=== PATIENT | female | born 2000 | race Caucasian/White ===

== ENCOUNTER 2019-09-09 11:45 | Outpatient (REF) | payer MEDICAID, SELFPAY ==
--- NOTE | 2019-09-09 10:15 | PAPFT_PTH ---
PATIENT: Janeen Mcneill LOC: [facility] U#:[id number] AGE/SX: 19/F ROOM: RE09/09/[address]: Lady Gaines : 2000 BED: DIS: 09/09/2019 SPEC #: [id number] RECD: 09/10/19 12:53 STATUS: STEFANI REQ #: [id number] JOSE ENRIQUE: 09/09/19 10:[address]: Lady Gaines DEPT: [facility] Cytology RECD BY: Kailyn Vu ENTERED: 09/10/19 12:53 SP TYPE: PAPFT OTHR DR: Alyssa Conner Tissues: 1 - CX/ENDOCX FOR PAP SMEARS Procedures: PAP THIN PREP/[facility] Screening Comments: [id number] (CHLAMYDIA/GC)
[2019-09-11 13:49] LABS: Chlamydia Result Negative (Negative); GC Result Negative (Negative)
== END 2019-09-09 12:05 ==
LOC: NCHCN 11:45
PROVIDERS: PCP Nurse Practitioner Family; Visit Provider Family Medicine
DX: Z11.3 Encounter for screening for infections with a predominantly sexual mode of transmission (principal); Z12.4 Encounter for screening for malignant neoplasm of cervix; R87.612 Low grade squamous intraepithelial lesion on cytologic smear of cervix (LGSIL)
CPT/HCPCS: 87491; 87591; 88142

== ENCOUNTER 2022-02-18 12:36 | Emergency (ER) | payer MEDICAID, SELFPAY ==
[2022-02-18] VITALS (20 sets, daily range): BP systolic 94–107; BP diastolic 45–69; PULSE 58–116; RESP 11–24; TEMP 36.6; O2SAT 97–100
--- NOTE | 2022-02-18 13:00 | RT.EKG_ITS ---
APPROVED REPORT Exam: Resting ECG Reason for Exam: nausea vomiting Patient Location: E HR:75 bpm ECG Measurements Heart Rate 75 AXIS PA 124 P 58 QRSd 94 QRS 75 QT 387 T 39 QTc 434 Conclusion Sinus rhythm...normal P axis, V-rate 60- 99 Atrial premature complex...SV complex w/ short R-R interval sinus rhythm, normal axis, normal intervals, non ischemic
--- NOTE | 2022-02-18 13:00 | DI.CT_ITS ---
Exam(s) CT ABDOMEN PELVIS W EXAM: CT ABDOMEN PELVIS W CLINICAL HISTORY: nausea vomiting. TECHNIQUE: Imaging Protocol: Axial computed tomography images with coronal and sagittal reformatted images were created and reviewed CONTRAST MATERIAL: Intravenous: Omnipaque 350 Contrast volume 70 ml Oral: / no COMPARISON: No exams were available for comparison FINDINGS: ABDOMEN: Lung Bases: Normal where visualized. Liver: Normal density. No measurable mass. Gallbladder and biliary tract: No radiodense calculus or dilation. Pancreas: Normal density, no abnormal calcifications or inflammatory process. Spleen: Normal. Kidneys: Normal size, contour and axis. No radiodense stones or obstructive uropathy. No masses seen. Adrenal glands: No masses seen. Abdominal Aorta: Abdominal portion non-dilated. PELVIS: Bladder: No gross wall thickening. No calculi.No focal mass. Bowel: No obstruction or bowel wall thickening. Appendix normal.Colon mainly free of stool. Peritoneal cavity: No ascites, collection or mesenteric inflammatory response. Bones: Within normal limits for age. Reproductive organs: Uterus within normal limits. Bilateral enlarged ovaries with multiple follicles could indicate polycystic ovarian syndrome. Lymph nodes: Unremarkable. Impression: Enlarged bilateral ovaries which could indicate polycystic ovarian syndrome. No acute abnormality. RADIATION DOSE DELIVERED: 632.71mGy.cm Total DLP DATA REPOSITORY: All CT scans at this facility are submitted to the National Radiology Data Registry (NRDR) Dose Index Registry (DIR) with the [employer] (ACR). RADIATION OPTIMIZATION: All CT scans at this facility use at least one of these dose optimization te chniques: automated exposure control; mA and/or kV adjustment per patient size (includes targeted exa ms where dose is matched to clinical indication); or iterative reconstruction.
--- NOTE | 2022-02-18 13:10 | W.ED.GENAD ---
Discharge Plan Disposition Patient Disposition: Home Condition: Improving Discharge Details Chief Complaint: Nausea/Vomit/Diar Clinical Impression: Nausea & vomiting Primary Care Provider: Lady Gaines ED Provider: Ed Ozuna Home Meds and New Rx's Prescriptions: No Action No Known Home Meds Discharge Instructions Instructions: Acute Nausea and Vomiting (ED) Additional Instructions: Please help with your primary care physician. Please return to the emergency department for any worsening symptoms. Medical Decision Making 21-year-old female presents with several days of nausea and vomiting, normal bowel movement today or yesterday, no history of abdominal surgeries, patient is a daily marijuana smoker, was evaluated [facility] yesterday and discharged home with antiemetics. Persistent nausea and vomiting. Dry oral mucosa and tachycardia on arrival nontender nondistended abdomen. No urinary symptoms. Consider persistent enteritis versus viral syndrome versus low suspicion for appendicitis or cholecystitis, must evaluate for UTI pancreatitis and . Will obtain labs and imaging. Consider possible cannabinoid hyperemesis syndrome or cyclic vomiting syndrome. Will obtain EKG to assess QTC if normal will administer low-dose droperidol, patient will be receiving IV fluids close reassessment disposition pending results and reexamination 15: 41 likely mild dehydration in the setting of enteritis. Patient resting comfortably hemodynamically stable no vomiting in department. Responded well to droperidol. Partner is here to take her home. HPI General Date/Time Provider Initiated Documentation: 02/18/22 12:42. HPI Narrative: 21-year-old female presents with persistent nausea and vomiting over the past 4 days, normal bowel movement yesterday. No history of abdominal surgeries. Patient is a daily marijuana smoker. Was evaluated at [facility] and discharged with antiemetics. Related Data Home Medications Medication Instructions Recorded Confirmed Unknown [No Known Home Meds] 02/18/22 02/18/22 Allergies Allergy/AdvReac Type Severity Reaction Status Date / Time Penicillins AdvReac Intermediate rash, Unverified 09/10/12 14:19 trouble breathing General Stated Complaint: Nausea/Vomit/Diar NICHOLAS: 3 Review of Systems Narrative: Review of Systems Constitutional: negative Eyes: negative ENT: negative Cardiovascular: negative Respiratory: negative Gastrointestinal: Nausea vomiting : negative Musculoskeletal: negative Skin: negative Neurologic: negative Psych: negative PFSH All Active Problems (Updated 02/18/22 @ 15:42 by Ed Ozuna MD) Nausea & vomiting (Acute) Social History Smoking/Tobacco Use Status: Never Smoking risk assessment performed?: Yes Alcohol Intake: never Drug use: Daily Substance use type: marijuana Do you feel safe at home: Yes Do you feel safe in your relationship?: Yes Exam Narrative Exam Narrative: Physical Examination General: alert, awake, cooperative, resting comfortably, no acute distress HEENT: normocephalic, atraumatic; PERRL, EOM intact, conjunctiva normal; no nasal discharge; dry oral mucosa Neck: supple, trachea midline; full ROM Chest: normal to inspection Respiratory: normal respiratory effort, speaking in full sentences, clear to auscultation, no wheezing, rales or rhonchi Cardiac: Tachycardia, regular rhythm, S1S2 intact, no murmurs rubs or gallops GI: abdomen soft, non-tender, non-distended; no palpable mass or hepatosplenomegaly Skin: no lesions, rashes or trauma appreciated Neuro: AAOx3, normal speech, moving all extremities Psych: Appropriate mood and affect Course Vital Signs Vital signs: Vital Signs Temperature 36.6 C 02/18/22 12:38 Pulse 116 H 02/18/22 12:38 Respiratory Rate 16 02/18/22 12:38 Blood Pressure 107/65 02/18/22 12:38 Pulse Oximetry 100 02/18/22 12:38 Temperature 36.6 C 02/18/22 12:38 Temperature Source Oral 02/18/22 12:38 Pulse 116 H 02/18/22 12:38 Respiratory Rate 16 02/18/22 12:38 Respiratory Effort Non-Labored 02/18/22 12:42 Blood Pressure 107/65 02/18/22 12:38 Blood Pressure Position Sitting 02/18/22 12:38 Pulse Oximetry 100 02/18/22 12:38 Oxygen Delivery Method Room Air 02/18/22 12:38 Oxygen Flow Rate 0 02/18/22 12:38 Pain Level 0 02/18/22 12:38
[2022-02-18 13:37] LABS: Abs Immature Grans 0.04 10^3/uL (0.0-0.06); Absolute Basophil Count 0.06 10^3/uL (0.0-0.2); Absolute Eosinophil Count 0.01 10^3/uL (0.0-0.7); Absolute Lymphocyte Count 0.97 10^3/uL (1.2-3.4); Absolute Neutrophil Count 9.79 10^3/uL (1.2-6.7); Basophils % 0.5; Eosinophils % 0.1; HCT 38.2 % (36.0-46.0); HGB 13.1 g/dL (11.2-15.7); Immature Grans % 0.3; Lymphocytes % 8.3; MCH 31.4 pg (27.0-33.0); MCHC 34.3 % (32.0-36.0); MCV 92 fL (80-95); MPV 10.6 fL (8.0-11.0); Monocytes % 6.9; Neutrophils % 83.9; Platelet Count 262 10^3/uL (130-400); RBC 4.17 10^6/uL (3.93-5.22); RDW 12.7 % (11.7-14.6); RDW-SD 42.5 fL; WBC 11.67 10^3/uL (4.4-10.8)
[2022-02-18 13:38] LABS: Absolute Monocyte Count 0.81 10^3/uL (0.1-0.8)
[2022-02-18] MEDS: Normal Saline - Diluent 50 ML VIAL IJ (13:38)
[2022-02-18] MEDS: Omnipaque 350 MG/ML 100 ML BTL 70 ML IJ (13:38)
[2022-02-18 13:52] LABS: ALT 30 U/L (14-59); AST 18 U/L (15-37); Albumin 4.7 g/dL (3.4-5.0); Alkaline Phosphatase 63 U/L (46-116); BUN 17 mg/dL (7-18); Bilirubin, Total 0.6 mg/dL (0.2-1.0); CREATININE 0.8 mg/dL (0.55-1.02); Calcium 9.1 mg/dL (8.5-10.1); Chloride 103 mmol/L (98-107); Estimated GFR 106.11 (mL/min/1.73m2); Glucose 79 mg/dL (74-106); Lipase 41 U/L (73-393); Potassium 3.5 mmol/L (3.5-5.1); Sodium 140 mmol/L (136-145); Total Protein 8.1 g/dL (6.4-8.2)
[2022-02-18] MEDS: Lactated Ringers 1,000 ML 1000 ML IV ×2 (13:57→14:37)
[2022-02-18] MEDS: Droperidol 5 MG/2 ML VIAL 1.25 MG IVP (13:57)
[2022-02-18 14:03] LABS: Bilirubin Negative (Negative); Blood Trace-intact (Negative); Clarity Clear (Clear); Glucose Negative (Negative); Ketones >=160 mg/dL (Negative); Leukocyte Esterase Negative (Negative); Nitrite Negative (Negative); Specific Gravity 1.025 (1.005-1.025); Urobilinogen 0.2 EU/dL (Up TO 0.2); pH 5.5 (5-8)
--- NOTE | 2022-02-18 14:19 | DI.VRAD_ITS ---
PROCEDURE INFORMATION: Exam: CT Abdomen And Pelvis With Contrast Exam date and time: 02/18/2022 1:34 PM Age: 21 years old Clinical indication: Nausea and vomiting TECHNIQUE: Imaging protocol: Computed tomography of the abdomen and pelvis with contrast. Contrast material: OMNIPAQUE 350; Contrast volume: 70 ml; Contrast route: INTRAVENOUS (IV); COMPARISON: No relevant prior studies available. FINDINGS: Lungs: No concerning finding. Liver: The liver is unremarkable. Gallbladder and bile ducts: The gallbladder is unremarkable. No biliary ductal dilatation. Pancreas: The pancreas is unremarkable. Spleen: The spleen is unremarkable. Adrenal glands: The adrenal glands are unremarkable. Kidneys and ureters: No hydronephrosis or nephrolithiasis. Stomach and bowel: No evidence of bowel obstruction. No pericolonic inflammatory stranding. Several mildly distended, minimally thick-walled small bowel loops, nonspecific, may represent enteritis in the appropriate clinical setting. Appendix: No evidence of appendicitis. Intraperitoneal space: Unremarkable. No free air. No significant fluid collection. Vasculature: The aorta is unremarkable. Lymph nodes: Unremarkable. No enlarged lymph nodes. Urinary bladder: No focal wall thickening of the urinary bladder. Reproductive: Unremarkable uterus. Ovaries are top-normal in size likely with multiple small follicles. (2-62); this appearance is within normal limits, and overlaps polycystic ovarian morphology. If clinically warranted, correlate with appropriate labs and consider sonographic correlation. Bones/joints: Unremarkable. No acute fracture. Soft tissues: Unremarkable. IMPRESSION: Several mildly distended, minimally thick-walled small bowel loops, nonspecific, may represent enteritis in the appropriate clinical setting. Dictated and Authenticated by: Mahnaz Hay MD. Ordering:CHRISTINE Ward MD
[2022-02-18 14:21] LABS: Bacteria Few HPF (Negative); C & S Indicated? No/Sq. Contamination; Casts Negative LPF (Negative); Crystals Negative HPF (Negative); Epithelial Cells Many HPF (Negative); Mucus Negative (Negative); RBC 0-2 HPF (0-2); WBC 0-2 HPF (0-5)
--- NOTE | 2022-02-20 08:54 | NUR.NOTE ---
Nursing Note: Accessed chart to determine orders for EKG and to determine whether or not one needs to be cancelled. EKG needs to be read.
== END 2022-02-18 15:57 | disposition home or self-care (01) ==
PROVIDERS: Emergency Provider Emergency Medicine; PCP Family Medicine
DX: R11.2 Nausea with vomiting, unspecified (principal); R00.0 Tachycardia, unspecified; R68.2 Dry mouth, unspecified
CPT/HCPCS: 36415; 80053; 81025; 83690; 93005; 96361; 96374; 99285; 74177; 81003; 81015; 85025; 93010; J1790; J3490

== ENCOUNTER 2022-02-19 09:39 | Emergency (ER) | payer MEDICAID, SELFPAY ==
[2022-02-19 09:45] VITALS: BP 120/60; PULSE 89; RESP 18; TEMP 36.8; O2SAT 99
--- NOTE | 2022-02-19 10:31 | ED.GENADUL_ITS ---
Discharge Plan Disposition Patient Disposition: Home Condition: Good Discharge Details Clinical Impression: Nausea & vomiting Primary Care Provider: Lady Gaines ED Provider: Lawrence Eubanks Home Meds and New Rx's Prescriptions: New haloperidol 2 mg tablet 2 mg PO DAILY Qty: 3 0RF Discharge Instructions Additional Instructions: At this time your symptoms appear concerning for cyclic vomiting syndrome. Please utilize the tools that we discussed, including the heating pad, the capsaicin cream on your abdomen, and the hot showers. Please take the Haldol as directed. The treatment is only for the next 1 or 2 days, and this will likely abort the symptoms you are having. Please apply the capsaicin cream 2-3 times per day on your abdomen. If you notice any worsening of your symptoms, or any new symptoms such as vomiting, diarrhea, fever, chills, shortness of breath, chest pain, numbness, weakness, or fainting , please return immediately to the emergency department for reevaluation. Please follow up with your primary care provider as soon as possible for reassessment and reevaluation. As always, it was a pleasure participating in your medical care today. Referrals: Lady Gaines [Primary Care Provider] - Discharge Data Discharge Date/Time-TO BE ENTERED AT DEPARTURE: 02/19/22 10:48 Medical Decision Making 21-year-old female presents today for nausea and vomiting. Patient was seen at [facility] a few days ago, work-up was stable then, she was discharged home with antiemetics. She subsequently came the next day to [facility] emergency department, she was seen and assessed, vital signs and labs Stable, CT scan was stable, mild ovarian cyst, but no evidence of appendicitis. She was given droperidol and had a notable clinical improvement with this and discharged home. Concern was for cyclic vomiting syndrome. Patient states that this morning she woke up and was still nauseous, and came to the ER for reassessment. She denies any abdominal pain. She denies any other complaints. No other modifying factors. She is a daily marijuana user, but denies any changes in the use or frequency of this. No other complaints at this time. Symptoms here demonstrated notably stable vital signs, notably nontender abdomen, no evidence of an acute surgical abdomen or other significant abnormality in that regards. Oral mucosa slightly dry. Symptoms appear clinically consistent with mild cyclic vomiting syndrome. I did offer IM Haldol, however patient refused. She would prefer oral therapy. She states that she has not vomited since the morning. Patient tolerating p.o. well otherwise. Patient is otherwise refusing IM/IV treatments at this time. We will give capscasin for home use. We will give a few very low doses of Haldol for use as needed as she states that the Zofran is otherwise ineffective. Recommend cessation of marijuana at home, and close follow-up with PCP for reassessment. I have extensively reviewed the treatment plan and discharge instructions with the patient. I have addressed all patient concerns at this time. The patient was made aware of what symptoms to monitor for that would warrant a return to the emergency department. Discussed the plan with the patient, they demonstrate verbal understanding and agreement with our assessment and plan at this time. The documentation in this chart was dictated using [employer] dictation software. Please excuse any dictation errors. HPI General Date/Time Provider Initiated Documentation: 02/19/22 10:16 . HPI Narrative: 21-year-old female presents today for nausea and vomiting. Patient was seen at [facility] a few days ago, work-up was stable then, she was discharged home with antiemetics. She subsequently came the next day to [facility] emergency department, she was seen and assessed, vital signs and labs stable, CT scan was stable, mild ovarian cyst, but no evidence of appendicitis. She was given droperidol and had a notable clinical improvement with this and discharged home. Concern was for cyclic vomiting syndrome. Patient states that this morning she woke up and was still nauseous, and came to the ER for reassessment. She denies any abdominal pain. She denies any other complaints. No other modifying factors. She is a daily marijuana user, but denies any changes in the use or frequency of this. No other complaints at this time. Related Data Home Medications Medication Instructions Recorded Confirmed haloperidol 2 mg tablet 2 mg PO DAILY #3 tabs 02/19/22 Previous Rx's Medication Instructions Recorded haloperidol 2 mg tablet 2 mg PO DAILY #3 tabs 02/19/22 Allergies Allergy/AdvReac Type Severity Reaction Status Date / Time Penicillins AdvReac Intermediate rash, Unverified 02/19/22 09:51 trouble breathing General Stated Complaint: Recheck NICHOLAS: 4 Review of Systems All systems reviewed & are unremarkable except as noted in HPI and below PFSH All Active Problems Nausea & vomiting (Acute) Social History Smoking/Tobacco Use Status: Never Smoking risk assessment performed?: Yes Alcohol Intake: never Drug use: Daily Substance use type: marijuana Do you feel safe at home: Yes Do you feel safe in your relationship?: Yes Exam Narrative Exam Narrative: 1.Const: Well-nourished, Well-developed, appearing stated age 2.Eyes: PERRL, no conjunctival injection, and symmetrical lids. 3.ENT: Atraumatic external nose and ears. Dry MM. Neck: Symmetric, trachea midline, No thyromegaly. 4.CVS: +S1/S2, No murmurs or gallops. Peripheral pulses 2+ and equal in all extremities. Brisk capillary refill in all extremities. 5.RESP: Unlabored respiratory effort. Clear to auscultation bilaterally. No wheezes rales or rhonchi 6.GI: Soft, Nontender/Nondistended, No hepatosplenomegaly. No guarding or rebound. 7.MSK: Normocephalic/Atraumatic, Extremities w/o deformity or ttp No cyanosis or clubbing, Normal movement of all extremities 8.Skin: Warm, Dry. No rashes or lesions. 9.Neuro: pearl peller II-XII grossly intact. Sensation grossly intact, no focal neurologic deficits. 10.Psych: (AAO) x3. Appropriate mood and affect Course Vital Signs Vital signs: Vital Signs Temperature 36.8 C 02/19/22 09:45 Pulse 89 02/19/22 09:45 Respiratory Rate 18 02/19/22 09:45 Blood Pressure 120/60 02/19/22 09:45 Pulse Oximetry 99 02/19/22 09:45 Temperature 36.8 C 02/19/22 09:45 Temperature Source Temporal Artery Scan 02/19/22 09:45 Pulse 89 02/19/22 09:45 Respiratory Rate 18 02/19/22 09:45 Respiratory Effort Non-Labored 02/19/22 09:49 Blood Pressure 120/60 02/19/22 09:45 Blood Pressure Position Sitting 02/19/22 09:45 Pulse Oximetry 99 02/19/22 09:45 Oxygen Delivery Method Room Air 02/19/22 09:45 Oxygen Flow Rate 0 02/19/22 09:45 Pain Level 1 02/19/22 09:45
[2022-02-19] MEDS: Haloperidol 5 MG TAB PO (10:42)
== END 2022-02-19 10:48 | disposition home or self-care (01) ==
PROVIDERS: Emergency Provider Student in an Organized Health Care Education/Training Program; PCP Family Medicine
DX: R11.2 Nausea with vomiting, unspecified (principal)
CPT/HCPCS: 99283

== ENCOUNTER 2022-02-19 19:45 | Emergency (ER) | payer MEDICAID, SELFPAY | END 2022-02-19 20:15 | disposition left against medical advice (07) | PROVIDERS: PCP Family Medicine | DX: Z53.21 Procedure and treatment not carried out due to patient leaving prior to being seen by health care provider (principal) ==

== ENCOUNTER 2022-02-20 09:19 | Emergency (ER) | payer MEDICAID, SELFPAY ==
[2022-02-20 09:38] VITALS: BP 105/73; PULSE 114; RESP 18; TEMP 36.9; O2SAT 97
[2022-02-20] MEDS: Lactated Ringers 1,000 ML 1000 ML IV (10:25)
[2022-02-20 10:38] LABS: Abs Immature Grans 0.02 10^3/uL (0.0-0.06); Absolute Basophil Count 0.04 10^3/uL (0.0-0.2); Absolute Eosinophil Count 0.02 10^3/uL (0.0-0.7); Absolute Lymphocyte Count 0.83 10^3/uL (1.2-3.4); Absolute Neutrophil Count 5.96 10^3/uL (1.2-6.7); Basophils % 0.5; Eosinophils % 0.3; HCT 43.9 % (36.0-46.0); HGB 15.4 g/dL (11.2-15.7); Immature Grans % 0.3; MCH 31.8 pg (27.0-33.0); MCHC 35.1 % (32.0-36.0); MCV 91 fL (80-95); MPV 10.5 fL (8.0-11.0); Monocytes % 9.2; Neutrophils % 78.7; Platelet Count 308 10^3/uL (130-400); RBC 4.84 10^6/uL (3.93-5.22); RDW 12.9 % (11.7-14.6); RDW-SD 42.1 fL; WBC 7.57 10^3/uL (4.4-10.8)
[2022-02-20 11:00] LABS: ALT 29 U/L (14-59); AST 15 U/L (15-37); Albumin 5.4 g/dL (3.4-5.0); Alkaline Phosphatase 77 U/L (46-116); Anion Gap 20.7 mmol/L (3-11); BUN 10 mg/dL (7-18); Bilirubin, Total 0.8 mg/dL (0.2-1.0); CO2 13.3 mmol/L (21.0-32.0); CREATININE 0.8 mg/dL (0.55-1.02); Calcium 9.4 mg/dL (8.5-10.1); Chloride 102 mmol/L (98-107); Estimated GFR 106.11 (mL/min/1.73m2); Glucose 66 mg/dL (74-106); Magnesium 1.8 mg/dL (1.8-2.4); Potassium 4.2 mmol/L (3.5-5.1); Sodium 136 mmol/L (136-145); Total Protein 9.5 g/dL (6.4-8.2)
[2022-02-20] MEDS: Prochlorperazine 10 MG/2 ML VIAL IVP (11:09)
[2022-02-20] MEDS: diphenhydrAMINE 50 MG/ML VIAL 25 MG IVP (11:10)
[2022-02-20] MEDS: DEXTROSE 5%-0.9% SALINE 1,000 ML 200 ML IV (11:21)
[2022-02-20 11:23] LABS: HCG Qual (Serum) Negative
[2022-02-20 12:25] VITALS: BP 112/74; PULSE 96; RESP 18; O2SAT 96
[2022-02-20 13:23] VITALS: BP 102/68; PULSE 100; RESP 18; TEMP 37.1; O2SAT 99
--- NOTE | 2022-02-20 13:29 | ED.GENADUL_ITS ---
Discharge Plan Disposition Patient Disposition: Home Condition: Stable Discharge Details Clinical Impression: Nausea and vomiting, Metabolic acidosis Primary Care Provider: Lady Gaines ED Provider: Tye Head Home Meds and New Rx's Prescriptions: New prochlorperazine maleate [Compazine] 10 mg tablet 10 mg PO Q8H PRNQty: 30 0RF Discontinued haloperidol 2 mg tablet 2 mg PO DAILY Qty: 3 0RF Discharge Instructions Additional Instructions: Please drink small amounts of fluid frequently in order to stay hydrated. [place] fluid is clear liquid with some electrolytes like Gatorade. You may advance your diet to bland foods like rice tomorrow as tolerated. Please do not smoke or ingest marijuana as this may cause recurrent vomiting. Please contact your primary care physician to arrange follow-up. Return to the ER immediately for any worsening or new concerning symptoms. Referrals: Lady Gaines [Primary Care Provider] - Discharge Data Discharge Date/Time-TO BE ENTERED AT DEPARTURE: 02/20/22 14:33 Medical Decision Making 21-year-old female here with nausea and vomiting. Patient has been seen here now 3 times over the past few days. There was concern on prior ED visits for cannabinoid hyperemesis syndrome. Diagnostic imaging including CT of the abdomen pelvis on prior visit unremarkable. Patient notes antiemetics are not helping. Labs reviewed and no leukocytosis. She does have anion gap acidosis. negative. Compazine 10 mg IV and Benadryl 25mg IV administered. Patient received crystalloid IV fluid bolus 1 L. She was then given additional 500 mL of D5 normal saline. On reassessment, patient was feeling better and tolerating liquids. Patient stable. Usual customary discharge instructions reviewed with the patient. Medical Records Medical records reviewed: Yes I reviewed the patient's medical records. Medical records narrative: CT of the abdomen pelvis 02/18/2022 as interpreted by radiology: Enlarged bilateral ovaries which could indicate polycystic ovarian syndrome. No acute abnormality. Lab Data Lab results reviewed: Yes I reviewed the patient's lab results. Labs: Laboratory Tests Range/Units 02/20/22 02/20/22 02/20/22 10:25 10:25 10:25 WBC (4.4-10.8) 10^3/uL 7.57 RBC (3.93-5.22) 10^6/uL 4.84 Hgb (11.2-15.7) g/dL 15.4 D Hct (36.0-46.0) % 43.9 MCV (80-95) fL 91 MCH (27.0-33.0) pg 31.8 MCHC (32.0-36.0) % 35.1 RDW (11.7-14.6) % 12.9 Plt Count (130-400) 10^3/uL 308 MPV (8.0-11.0) fL 10.5 Immature Gran % 0.3 Neutrophils % 78.7 Lymphocytes % 11.0 Monocytes % 9.2 Eosinophils % 0.3 Basophils % 0.5 Nucleated RBC % (0.0-0.3) % 0.0 Absolute Neutrophils (1.2-6.7) 10^3/uL 5.96 Absolute Lymphocytes (1.2-3.4) 10^3/uL 0.83 L Absolute Monocytes (0.1-0.8) 10^3/uL 0.70 Absolute Eosinophils (0.0-0.7) 10^3/uL 0.02 Absolute Basophils (0.0-0.2) 10^3/uL 0.04 Sodium (136-145) mmol/L 136 Potassium (3.5-5.1) mmol/L 4.2 Chloride (98-107) mmol/L 102 Carbon Dioxide (21.0-32.0) mmol/L 13.3 L Anion Gap (3-11) mmol/L 20.7 H BUN (7-18) mg/dL 10 Creatinine (0.55-1.02) mg/dL 0.8 Est GFR (CKD-EPI 2020) (mL/min/1.73m2) 106.11 Glucose (74-106) mg/dL 66 L Calcium (8.5-10.1) mg/dL 9.4 Magnesium (1.8-2.4) mg/dL 1.8 Total Bilirubin (0.2-1.0) mg/dL 0.8 AST (15-37) U/L 15 ALT (14-59) U/L 29 Alkaline Phosphatase (46-116) U/L 77 Total Protein (6.4-8.2) g/dL 9.5 H Albumin (3.4-5.0) g/dL 5.4 H Serum HCG, Qual Negative Range/Units 02/20/22 13:55 WBC (4.4-10.8) 10^3/uL RBC (3.93-5.22) 10^6/uL Hgb (11.2-15.7) g/dL Hct (36.0-46.0) % MCV (80-95) fL MCH (27.0-33.0) pg MCHC (32.0-36.0) % RDW (11.7-14.6) % Plt Count (130-400) 10^3/uL MPV (8.0-11.0) fL Immature Gran % Neutrophils % Lymphocytes % Monocytes % Eosinophils % Basophils % Nucleated RBC % (0.0-0.3) % Absolute Neutrophils (1.2-6.7) 10^3/uL Absolute Lymphocytes (1.2-3.4) 10^3/uL Absolute Monocytes (0.1-0.8) 10^3/uL Absolute Eosinophils (0.0-0.7) 10^3/uL Absolute Basophils (0.0-0.2) 10^3/uL Sodium (136-145) mmol/L 138 Potassium (3.5-5.1) mmol/L 4.1 Chloride (98-107) mmol/L 108 H Carbon Dioxide (21.0-32.0) mmol/L 12.7 L Anion Gap (3-11) mmol/L 17.3 H BUN (7-18) mg/dL 7 Creatinine (0.55-1.02) mg/dL 0.7 Est GFR (CKD-EPI 2020) (mL/min/1.73m2) 124.55 Glucose (74-106) mg/dL 594 H* Calcium (8.5-10.1) mg/dL 7.5 L Magnesium (1.8-2.4) mg/dL Total Bilirubin (0.2-1.0) mg/dL AST (15-37) U/L ALT (14-59) U/L Alkaline Phosphatase (46-116) U/L Total Protein (6.4-8.2) g/dL Albumin (3.4-5.0) g/dL Serum HCG, Qual HPI General Date/Time Provider Initiated Documentation: 02/20/22 09:52 . Limitations to Documentation: no limitations . Information obtained by: patient . HPI Narrative: 21-year-old female here with chief complaint of nausea and vomiting. Nausea and vomiting is severe. Persistent over the past 5 days. Patient was treated recently with antiemetic which initially did help but nausea now returned. No associated abdominal pain. Patient has been seen here in the emergency department 3 times over the past few days. There was concern on prior ED visits for cannabinoid hyperemesis syndrome. Diagnostic imaging including CT of the abdomen pelvis on prior visit unremarkable. Patient notes antiemetics are not helping. Related Data Home Medications Medication Instructions Recorded Confirmed prochlorperazine maleate 10 mg 10 mg PO Q8H PRN #30 tabs 02/20/22 tablet (Compazine) Previous Rx's Medication Instructions Recorded prochlorperazine maleate 10 mg 10 mg PO Q8H PRN #30 tabs 02/20/22 tablet (Compazine) Allergies Allergy/AdvReac Type Severity Reaction Status Date / Time Penicillins AdvReac Intermediate rash, Unverified 02/19/22 09:51 trouble breathing General Stated Complaint: Nausea/Vomit/Diar NICHOLAS: 3 Review of Systems All systems reviewed & are unremarkable except as noted in HPI and below Constitutional Constitutional: Denies fever(s) Gastrointestinal Gastrointestinal: Reports as per HPI PFSH All Active Problems Nausea & vomiting (Acute) Nausea and vomiting (Acute) Metabolic acidosis (Acute) Social History Smoking/Tobacco Use Status: Never Smoking risk assessment performed?: Yes Alcohol Intake: never Drug use: Daily Substance use type: marijuana Do you feel safe at home: Yes Do you feel safe in your relationship?: Yes Exam Const General: cooperative and no acute distress HENMT Mouth: moist mucous membranes Eyes Conjunctivae: normal conjunctivae Sclera: normal sclerae Neck Neck: trachea midline and supple Resp Auscultation: clear to auscultation bilaterally, no rales, no rhonchi and no wheezes Cardio Rate: regular rate and not tachycardic Rhythm: regular rhythm GI Palpation: soft, not firm, no guarding, no masses, not rigid and nontender Skin General skin exam: no rashes or lesions noted Neuro General: patient alert, patient awake and tone normal Extrem General: no edema Psych Appearance: grossly normal Mental Status: mental status grossly normal Course Vital Signs Vital signs: Vital Signs Temperature 36.9 C 02/20/22 09:38 Pulse 114 H 02/20/22 09:38 Respiratory Rate 18 02/20/22 09:38 Blood Pressure 105/73 02/20/22 09:38 Pulse Oximetry 97 02/20/22 09:38 Temperature 37.1 C 02/20/22 13:23 Temperature Source Skin 02/20/22 13:23 Pulse 100 H 02/20/22 13:23 Respiratory Rate 18 02/20/22 13:23 Respiratory Effort Non-Labored 02/20/22 11:32 Blood Pressure 102/68 02/20/22 13:23 Blood Pressure Position Sitting 02/20/22 09:38 Pulse Oximetry 99 02/20/22 13:23 Oxygen Delivery Method Room Air 02/20/22 13:23 Oxygen Flow Rate 0 02/20/22 13:23 Lab/Test Results Lab/Test Results: Laboratory Tests Range/Units 02/20/22 02/20/22 02/20/22 10:25 10:25 10:25 WBC (4.4-10.8) 10^3/uL 7.57 RBC (3.93-5.22) 10^6/uL 4.84 Hgb (11.2-15.7) g/dL 15.4 D Hct (36.0-46.0) % 43.9 MCV (80-95) fL 91 MCH (27.0-33.0) pg 31.8 MCHC (32.0-36.0) % 35.1 RDW (11.7-14.6) % 12.9 Plt Count (130-400) 10^3/uL 308 MPV (8.0-11.0) fL 10.5 Immature Gran % 0.3 Neutrophils % 78.7 Lymphocytes % 11.0 Monocytes % 9.2 Eosinophils % 0.3 Basophils % 0.5 Nucleated RBC % (0.0-0.3) % 0.0 Absolute Neutrophils (1.2-6.7) 10^3/uL 5.96 Absolute Lymphocytes (1.2-3.4) 10^3/uL 0.83 L Absolute Monocytes (0.1-0.8) 10^3/uL 0.70 Absolute Eosinophils (0.0-0.7) 10^3/uL 0.02 Absolute Basophils (0.0-0.2) 10^3/uL 0.04 Sodium (136-145) mmol/L 136 Potassium (3.5-5.1) mmol/L 4.2 Chloride (98-107) mmol/L 102 Carbon Dioxide (21.0-32.0) mmol/L 13.3 L Anion Gap (3-11) mmol/L 20.7 H BUN (7-18) mg/dL 10 Creatinine (0.55-1.02) mg/dL 0.8 Est GFR (CKD-EPI 2020) (mL/min/1.73m2) 106.11 Glucose (74-106) mg/dL 66 L Calcium (8.5-10.1) mg/dL 9.4 Magnesium (1.8-2.4) mg/dL 1.8 Total Bilirubin (0.2-1.0) mg/dL 0.8 AST (15-37) U/L 15 ALT (14-59) U/L 29 Alkaline Phosphatase (46-116) U/L 77 Total Protein (6.4-8.2) g/dL 9.5 H Albumin (3.4-5.0) g/dL 5.4 H Serum HCG, Qual Negative
[2022-02-20 14:32] VITALS: BP 110/64; PULSE 96; RESP 16; TEMP 36.7; O2SAT 98
[2022-02-20 14:34] LABS: Anion Gap 17.3 mmol/L (3-11); BUN 7 mg/dL (7-18); CO2 12.7 mmol/L (21.0-32.0); CREATININE 0.7 mg/dL (0.55-1.02); Calcium 7.5 mg/dL (8.5-10.1); Chloride 108 mmol/L (98-107); Estimated GFR 124.55 (mL/min/1.73m2); Potassium 4.1 mmol/L (3.5-5.1); Sodium 138 mmol/L (136-145)
[2022-02-20 14:37] LABS: Glucose 594 mg/dL (74-106)
== END 2022-02-20 14:33 | disposition home or self-care (01) ==
PROVIDERS: Emergency Provider Student in an Organized Health Care Education/Training Program; PCP Family Medicine
DX: E87.20 Acidosis, unspecified (principal)
CPT/HCPCS: 80048; 80053; 96361; 96374; 96375; 99284; 83735; 84703; 85025; J0780; J1200; J7042

== ENCOUNTER 2022-05-31 14:06 | Outpatient (REF) | payer MEDICAID, SELFPAY ==
[2022-05-31 22:19] LABS: ALT 27 U/L (14-59); AST 16 U/L (15-37); Albumin 4.8 g/dL (3.4-5.0); Alkaline Phosphatase 62 U/L (46-116); Anion Gap 6.1 mmol/L (3-11); BUN 12 mg/dL (7-18); Bilirubin, Total 0.2 mg/dL (0.2-1.0); CO2 27.9 mmol/L (21.0-32.0); CREATININE 0.8 mg/dL (0.55-1.02); Calcium 9.5 mg/dL (8.5-10.1); Calculated LDL 88 mg/dL (<100); Chloride 105 mmol/L (98-107); Cholesterol 162 mg/dL (<200); Estimated GFR 105.45 (mL/min/1.73m2); Glucose 86 mg/dL (74-106); HDL Cholesterol 49 mg/dL (40-60); Potassium 4.4 mmol/L (3.5-5.1); Sodium 139 mmol/L (136-145); Total Protein 8.4 g/dL (6.4-8.2); Triglyceride 126 mg/dL (<150)
[2022-05-31 22:33] LABS: Vitamin D 25 Total 14.4 ng/mL (30-100)
[2022-05-31 23:10] LABS: Hemoglobin A1C 4.8 % (<5.7)
== END 2022-05-31 14:07 | disposition home or self-care (01) ==
LOC: NCHCN 14:06
PROVIDERS: PCP Family Medicine; Visit Provider Family Medicine
DX: R73.9 Hyperglycemia, unspecified (principal); F41.1 Generalized anxiety disorder; E28.2 Polycystic ovarian syndrome; R79.89 Other specified abnormal findings of blood chemistry
CPT/HCPCS: 80053; 80061; 82306; 83036

== ENCOUNTER 2022-06-26 14:40 | Outpatient (REF) | payer MEDICAID, SELFPAY ==
[2022-06-26 21:54] LABS: HCG Quant, Pregnancy 1 mIU/mL (1-3)
[2022-06-27 17:41] LABS: Progesterone 0.3 ng/mL (See Table)
== END 2022-06-26 14:41 | disposition home or self-care (01) ==
LOC: LBN 14:40
PROVIDERS: PCP Family Medicine; Visit Provider Obstetrics & Gynecology Obstetrics
DX: N91.0 Primary amenorrhea (principal); E28.2 Polycystic ovarian syndrome
CPT/HCPCS: 84144; 84702

== ENCOUNTER 2023-07-18 14:12 | Emergency (ER) | payer MEDICAID, SELFPAY ==
[2023-07-18 14:18] VITALS: BP 110/55; PULSE 99; RESP 22; TEMP 37.2; O2SAT 99
--- NOTE | 2023-07-18 14:30 | DI.CT_ITS ---
Exam(s) CT ABDOMEN PELVIS W EXAM: CT ABDOMEN PELVIS W CLINICAL HISTORY: lower abdominal pain. TECHNIQUE: Imaging Protocol: Axial computed tomography images with coronal and sagittal reformatted images were created and reviewed CONTRAST MATERIAL: Intravenous: Omnipaque-350 100cc Oral: None COMPARISON: CT CT ABDOMEN PELVIS W from 02/18/2022 FINDINGS: VISUALIZED LUNG BASES: No nodules nor pleural effusions evident. ABDOMEN: There is no ascites. LIVER: There are no focal hepatic lesions evident. No dilated intrahepatic ducts. GALLBLADDER/BILIARY: No obvious gallbladder pathology. CBD is not dilated. PANCREAS: No evidence of pancreatic mass nor dilatation of the pancreatic duct. SPLEEN: Spleen is not enlarged. No obvious intrasplenic lesions. Splenic and portal veins are paten t. ADRENALS: There are no significant adrenal masses. KIDNEYS:No cysts evident. No solid renal masses. No calculi nor hydronephrosis.. ABDOMINAL AORTA: Abdominal aorta is not enlarged. LYMPH NODES:There is no retroperitoneal nor paraaortic adenopathy. ABDOMINAL WALL: No evidence of significant anterior abdominal wall nor inguinal hernia. GI: There is no evidence of bowel obstruction, free air, nor abscess. PELVIS: GI: No evidence of appendicitis.No evidence of sigmoid diverticulitis. LYMPH NODES: There is no intrapelvic nor inguinal adenopathy. REPRODUCTIVE: Uterus appears age-appropriate. Ovaries are again noted be mildly prominent and have t he appearance of probable polycystic ovary disease, similar to the CT scan of February 2022. There a ppears to be a corpus luteum cyst in the inferior aspect of the right ovary, this measuring 1.5 x 1.4 cm. Similar finding not seen in the left ovary. There are a few slightly prominent veins of both s izes the uterus which may represent element of pelvic congestion syndrome. There is no free fluid. URINARY BLADDER: No calculi nor obvious masses evident OSSEOUS: No fractures and no significant osseous lesions. IMPRESSION: 1. No evidence of appendicitis nor diverticulitis. 2. Appearance of the ovaries again consistent with polycystic ovarian syndrome. In addition, there i s a 15 x 14 mm corpus luteal cyst in the inferior aspect of the right ovary. There is a tiny amount of adjacent free fluid. 3. Mild pelvic congestion syndrome. Called by myself to ER physician. RADIATION DOSE DELIVERED: 624.44mGy.cm Total DLP DATA REPOSITORY: All CT scans at this facility are submitted to the National Radiology Data Registry (NRDR) Dose Index Registry (DIR) with the [employer] ([employer]). RADIATION OPTIMIZATION: All CT scans at this facility use at least one of these dose optimization te chniques: automated exposure control; mA and/or kV adjustment per patient size (includes targeted exa ms where dose is matched to clinical indication); or iterative reconstruction.
--- NOTE | 2023-07-18 14:36 | ED.GENADUL_ITS ---
Discharge Plan Disposition Patient Disposition: Home Condition: Stable Discharge Details Clinical Impression: Nausea & vomiting, Abdominal pain Primary Care Provider: Lady Gaines ED Provider: Derrick Hinson Home Meds and New Rx's Prescriptions: Continued prochlorperazine maleate [Compazine] 10 mg tablet 10 mg PO Q8H PRNQty: 30 0RF Discharge Instructions Additional Instructions: Your blood work and CAT scan did not show any concerning findings at this time, your CAT scan showed findings consistent with polycystic ovarian syndrome which you already see gynecology for Trying to cut back on your marijuana use may improve your symptoms Follow-up with your primary care provider within 1 to 2 weeks If you feel more ill, have severe worsening pain or new symptoms such as high fevers return to the emergency department for reevaluation HPI General Mode of arrival: ambulatory . Date/Time Provider Initiated Documentation: 07/18/23 14:12 . Limitations to Documentation: no limitations . Information obtained by: patient . History of Present Illness 23 year old F presents to the emergency department with the chief complaint of abdominal pain, described as moderate, with intensity rated at 6. Quality is described as sharp, and is localized to the abdomen. Patient reports no radiation. Patient started experiencing this day(s) (3) and it has been constant. No relieving factors improve symptom(s), No exacerbating factors reported . Patient notes nausea/vomiting. Related Data Home Medications Medication Instructions Recorded Confirmed prochlorperazine maleate 10 mg 10 mg PO Q8H PRN #30 tabs 02/20/22 07/18/23 tablet (Compazine) Previous Rx's Medication Instructions Recorded prochlorperazine maleate 10 mg 10 mg PO Q8H PRN #30 tabs 02/20/22 tablet (Compazine) Allergies Allergy/AdvReac Type Severity Reaction Status Date / Time Penicillins AdvReac Intermediate rash, Unverified 07/18/23 14:21 trouble breathing General Stated Complaint: Abd Prob NICHOLAS: 3 Review of Systems All systems reviewed & are unremarkable except as noted in HPI and below Constitutional Constitutional: Denies chills, Denies fever(s) and Denies weakness Cardiovascular Cardiovascular: Denies chest pain and Denies dyspnea Respiratory Respiratory: Denies cough and Denies dyspnea Gastrointestinal Gastrointestinal: Reports abdominal pain, Reports nausea and Reports vomiting Musculoskeletal Musculoskeletal: Denies joint swelling Neurologic Neurologic: Denies weakness Exam Const General: no acute distress Orientation: alert [facility] Head: normal to inspection Ears: external ears normal General nose exam: external nose normal Mouth: moist mucous membranes Eyes General: appearance normal, both eyes and all related structures Neck Neck: normal visual inspection Resp Effort & Inspection: normal respiratory effort and able to speak in complete sentences Cardio Rate: regular rate GI Palpation: soft and tender Skin General skin exam: no rashes or lesions noted Neuro General: patient alert and patient oriented x3 Extrem General: normal to inspection Psych Mental Status: mental status grossly normal Course Vital Signs Vital signs: Vital Signs Temperature 37.2 C 07/18/23 14:18 Pulse 99 H 07/18/23 14:18 Respiratory Rate 22 07/18/23 14:18 Blood Pressure 110/55 L 07/18/23 14:18 Pulse Oximetry 99 07/18/23 14:18 Temperature 37.2 C 07/18/23 14:18 Temperature Source Skin 07/18/23 14:18 Pulse 99 H 07/18/23 14:18 Respiratory Rate 22 07/18/23 14:18 Respiratory Effort Normal, Non-Labored 07/18/23 14:20 Blood Pressure 110/55 L 07/18/23 14:18 Blood Pressure Position Sitting 07/18/23 14:18 Pulse Oximetry 99 07/18/23 14:18 Oxygen Delivery Method Room Air 07/18/23 14:18 Oxygen Flow Rate 0 07/18/23 14:18 Pain Level 6 07/18/23 14:18 Medical Decision Making 23-year-old female with a history of daily marijuana use comes in with 3 days of lower abdominal pain and nausea vomiting. States she gets frequent episodes of similar complaints in send negative workups in the past. She denies fevers, chest pain, difficulty breathing, vaginal discharge or bleeding. She is alert and oriented x 4 on arrival does appear mildly anxious, her abdomen is soft nondistended, has tenderness in the left lower quadrant no guarding or rebound. Suspect this could be related to daily marijuana use, but will check a CBC, CMP, lipase and CT abdomen pelvis to evaluate for entities such as diverticulitis. Patient's labs unremarkable has mild low mag and potassium level, CT shows findings consistent with polycystic ovarian syndrome, has no enlarged ovaries. She sees a handkerchief cutter at [facility] for this, she is feeling significantly better and has no pain now. Discussed results and advised that she should try to cut back on her marijuana use. She will follow-up with her PCP and gynecology and return precautions given Differential Diagnosis Differential Diagnosis: Cannabinoid hyperemesis, diverticulitis Medical Records Medical records reviewed: Yes I reviewed the patient's medical records. Imaging Data Radiologic Study: Attestation: I personally reviewed and interpreted this imaging study as follows: Imaging: CT Scan Radiologist's impression: IMPRESSION: 1. No evidence of appendicitis nor diverticulitis. 2. Appearance of the ovaries again consistent with polycystic ovarian syndrome. In addition, there is a 15 x 14 mm corpus luteal cyst in the inferior aspect of the right ovary. There is a tiny amount of adjacent free fluid. 3. Mild pelvic congestion syndrome. Lab Data Lab results reviewed: Yes I reviewed the patient's lab results. Quality:SDOH Health Related Social Needs: No Data to Display PFSH All Active Problems (Updated 07/18/23 @ 16:55 by Derrick Hinson MD) Abdominal pain (Acute) Nausea & vomiting (Acute) Social History Smoking/Tobacco Use Status: Never Smoking risk assessment performed?: Yes Alcohol Intake: never Drug use: Daily Substance use type: marijuana Do you feel safe at home: Yes Do you feel safe in your relationship?: Yes
[2023-07-18 14:50] LABS: Bilirubin Small (Negative); Blood Moderate (Negative); Clarity Clear (Clear); Glucose Negative (Negative); Ketones >=160 mg/dL (Negative); Leukocyte Esterase Negative (Negative); Nitrite Negative (Negative); Specific Gravity >= 1.030 (1.005-1.025); Urobilinogen 0.2 mg/dL (Up to 0.2); pH 5.5 (5-8)
[2023-07-18 14:54] LABS: Abs Immature Grans 0.04 10^3/uL (0.0-0.06); Absolute Basophil Count 0.07 10^3/uL (0.0-0.2); Absolute Eosinophil Count 0.01 10^3/uL (0.0-0.7); Absolute Lymphocyte Count 1.49 10^3/uL (1.2-3.4); Absolute Monocyte Count 0.82 10^3/uL (0.1-0.8); Absolute Neutrophil Count 8.15 10^3/uL (1.2-6.7); Basophils % 0.7 %; Eosinophils % 0.1 %; HCT 38.6 % (36.0-46.0); HGB 13.3 g/dL (11.2-15.7); Immature Grans % 0.4 %; Lymphocytes % 14.1 %; MCH 31.7 pg (27.0-33.0); MCHC 34.5 % (32.0-36.0); MCV 92 fL (80-95); MPV 10.3 fL (8.0-11.0); Monocytes % 7.8 %; Neutrophils % 76.9 %; Platelet Count 295 10^3/uL (130-400); RDW 12.5 % (11.7-14.6); RDW-SD 41.7 fL; WBC 10.58 10^3/uL (4.4-10.8)
[2023-07-18 15:09] LABS: Lipase 21 U/L (16-77)
[2023-07-18 15:14] LABS: Bacteria Rare HPF (Negative); C & S Indicated? No; Casts Negative LPF (Negative); Crystals Negative HPF (Negative); Epithelial Cells Few HPF (Negative); Mucus Moderate (Negative); WBC 0-2 HPF (0-5)
[2023-07-18 15:19] LABS: ALT 31 U/L (14-59); AST 11 U/L (15-37); Albumin 4.9 g/dL (3.4-5.0); Alkaline Phosphatase 48 U/L (46-116); Anion Gap 14.9 mmol/L (3-11); BUN 18 mg/dL (7-18); Bilirubin, Total 0.8 mg/dL (0.2-1.0); CO2 22.1 mmol/L (21.0-32.0); CREATININE 0.6 mg/dL (0.55-1.02); Calcium 9.3 mg/dL (8.5-10.1); Chloride 105 mmol/L (98-107); Estimated GFR 127.67 (mL/min/1.73m2); Glucose 87 mg/dL (74-106); Magnesium 1.7 mg/dL (1.8-2.4); Potassium 3.4 mmol/L (3.5-5.1); Sodium 142 mmol/L (136-145); TSH (W/Ref FT4) 1.25 uIU/mL (0.36-3.74); Total Protein 8.3 g/dL (6.4-8.2)
[2023-07-18] MEDS: Normal Saline 1,000 ML 1000 ML IV (15:20)
[2023-07-18] MEDS: Droperidol 5 MG/2 ML VIAL 2.5 MG IVP (15:21)
[2023-07-18] MEDS: Ketorolac 15 MG/ML VIAL IVP (15:21)
[2023-07-18] MEDS: Omnipaque 350 MG/ML 100 ML BTL IJ (15:38)
[2023-07-18 16:31] VITALS: BP 109/66; PULSE 87; RESP 16; TEMP 36.6; O2SAT 96
== END 2023-07-18 17:10 | disposition home or self-care (01) ==
PROVIDERS: Emergency Provider Emergency Medicine; PCP Family Medicine
DX: R10.30 Lower abdominal pain, unspecified (principal); R11.2 Nausea with vomiting, unspecified; E28.2 Polycystic ovarian syndrome
CPT/HCPCS: 80053; 83690; 96360; 99285; 74177; 81003; 81015; 83735; 84443; 85025; 99284; J1790; J1885; J3490

== ENCOUNTER 2023-10-27 15:55 | Emergency (ER) | payer MEDICAID, SELFPAY ==
[2023-10-27 15:59] VITALS: BP 99/63; PULSE 68; RESP 16; TEMP 36.7; O2SAT 98
[2023-10-27] MEDS: Ondansetron 4 MG/2 ML VIAL IVP (16:34)
[2023-10-27] MEDS: Normal Saline 1,000 ML 1000 ML IV (16:34)
[2023-10-27 17:31] LABS: Abs Immature Grans 0.03 10^3/uL (0.0-0.06); Absolute Basophil Count 0.06 10^3/uL (0.0-0.2); Absolute Lymphocyte Count 0.83 10^3/uL (1.2-3.4); Absolute Monocyte Count 0.51 10^3/uL (0.1-0.8); Absolute Neutrophil Count 10.42 10^3/uL (1.2-6.7); Basophils % 0.5 %; HCT 41.9 % (36.0-46.0); HGB 14.7 g/dL (11.2-15.7); Immature Grans % 0.3 %; MCH 31.3 pg (27.0-33.0); MCHC 35.1 % (32.0-36.0); MCV 89 fL (80-95); MPV 11.5 fL (8.0-11.0); Monocytes % 4.3 %; Neutrophils % 87.9 %; Platelet Count 293 10^3/uL (130-400); RDW 12.1 % (11.7-14.6); RDW-SD 39.8 fL; WBC 11.85 10^3/uL (4.4-10.8)
[2023-10-27 17:42] LABS: ALT 23 U/L (14-59); AST 14 U/L (15-37); Albumin 4.9 g/dL (3.4-5.0); Alkaline Phosphatase 57 U/L (46-116); Anion Gap 19.1 mmol/L (3-11); BUN 14 mg/dL (7-18); Bilirubin, Total 0.97 mg/dL (0.2-1.0); CO2 15.9 mmol/L (21.0-32.0); CREATININE 0.7 mg/dL (0.55-1.02); Calcium 9.9 mg/dL (8.5-10.1); Chloride 104 mmol/L (98-107); Estimated GFR 123.01 (mL/min/1.73m2); Glucose 95 mg/dL (74-106); Magnesium 1.7 mg/dL (1.8-2.4); Potassium 3.3 mmol/L (3.5-5.1); Sodium 139 mmol/L (136-145); Total Protein 8.4 g/dL (6.4-8.2)
--- NOTE | 2023-10-27 17:47 | ED.GENADUL_ITS ---
Discharge Plan Disposition Patient Disposition: Home Discharge Details Clinical Impression: Gastroenteritis Primary Care Provider: Lady Gaines ED Provider: Ines Reyna Home Meds and New Rx's Prescriptions: Continued prochlorperazine maleate [Compazine] 10 mg tablet 10 mg PO Q8H PRNQty: 30 0RF Discharge Instructions Instructions: Viral gastroenteritis in adults Additional Instructions: Your COVID/flu/RSV test was negative. Your symptoms are most likely due to another viral illness. Follow-up with your primary care provider if you are not feeling better by Sunday. Please stay well-hydrated, drinking plenty of fluids throughout the day. I would start with things that have electrolytes such as Gatorlyte or Pedialyte. You may advance diet slowly as tolerated, starting with crackers, bananas, rice, and applesauce. Your potassium was slightly low today, so bananas would be a great idea. You may use the Zofran provided as needed for severe nausea/vomiting. Return to emergency care if you develop severe belly pain, uncontrollable vomiting despite medication, episodes of passing out, or if you are very worried and need to be rechecked again immediately Referrals: Lady Gaines [Primary Care Provider] - Discharge Data Discharge Date/Time-TO BE ENTERED AT DEPARTURE: 10/27/23 18:38 HPI General Date/Time Provider Initiated Documentation: 10/27/23 16:20 . HPI Narrative: Janeen is a 23-year-old female presented to the emergency department today for evaluation of nausea and vomiting accompanied by abdominal pain and chills. She reports she started feeling unwell last night with fatigue and sore throat, and started vomiting this morning. She has been unable to keep anything down, has also had diarrhea multiple times. No blood in stool or emesis. Denies fever, headache, dizziness, congestion, cough, chest pain, shortness of breath, point tenderness, changing bladder function or dysuria. No history of abdominal surgeries or significant past medical history. She does have a recent ill contacts, boyfriend's mother has been sick with GI bug. P exam reassuring. Slightly tacky mucous membranes, no oropharyngeal erythema or exudate noted. Clear voice. Easy work of breathing, lung sounds clear bilaterally. Abdomen is soft, nondistended, diffusely tender to palpation with normal active bowel sounds. No obvious rashes or ecchymosis noted. History and presentation consistent with viral gastroenteritis. No red flags concerning for acute abdomen requiring diagnostic imaging at this time. Labs performed to rule out acute electrolyte abnormality. I independently interpreted the following tests : CBC notable for mild leukocytosis, white cell count 11.85. Mild hypokalemia, potassium 3.3. CMP otherwise unremarkable. COVID/flu/RSV negative. On the emergency department Janeen received IV fluids and Zofran with good improvement in symptoms. She was able to take p.o. soledad tyler without difficulty. Overall workup today reassuring, Consistent with uncomplicated gastroenteritis. Most likely viral in etiology, especially as she had recent ill contacts with similar symptoms. Reviewed discharge instructions. Limited number of Zofran given for home use. Educated on red flags indicating need for return to emergency care. Related Data Home Medications ?Medication ?Instructions ?Recorded ?Confirmed prochlorperazine maleate 10 mg 10 mg PO Q8H PRN #30 tabs 02/20/22 10/27/23 tablet (Compazine) Previous Rx's ?Medication ?Instructions ?Recorded prochlorperazine maleate 10 mg 10 mg PO Q8H PRN #30 tabs 02/20/22 tablet (Compazine) Allergies Allergy/AdvReac Type Severity Reaction Status Date / Time Penicillins AdvReac Intermediate rash, Unverified 10/27/23 16:03 trouble breathing General Stated Complaint: Nausea/Vomit/Diar NICHOLAS: 4 Review of Systems Narrative: see HPI Exam Const General: cooperative, no acute distress and well developed Nutritional Appearance: average body habitus HENMT Face and sinus: dry mucous membranes (slightly tacky) Mouth: no muffled voice Resp Effort & Inspection: normal respiratory effort and able to speak in complete sentences Auscultation: clear to auscultation bilaterally Cardio Rate: regular rate Rhythm: regular rhythm GI Inspection: normal to inspection and non-distended Palpation: soft, not firm, not rigid and tender (diffuse mild tenderness) Auscultation: normal bowel sounds Skin General skin exam: no rashes or lesions noted Course Vital Signs Vital signs: Vital Signs Temperature 36.7 C 10/27/23 15:59 Pulse 68 10/27/23 15:59 Respiratory Rate 16 10/27/23 15:59 Blood Pressure 99/63 L 10/27/23 15:59 Pulse Oximetry 98 10/27/23 15:59 Temperature 36.7 C 10/27/23 15:59 Pulse 68 10/27/23 15:59 Respiratory Rate 16 10/27/23 15:59 Respiratory Effort Normal 10/27/23 16:04 Blood Pressure 99/63 L 10/27/23 15:59 Pulse Oximetry 98 10/27/23 15:59 Pain Level 4 10/27/23 15:59 Lab/Test Results Lab/Test Results: Laboratory Tests Range/Units 10/27/23 17:12 WBC (4.4-10.8) 10^3/uL 11.85 H RBC (3.93-5.22) 10^6/uL 4.70 Hgb (11.2-15.7) g/dL 14.7 Hct (36.0-46.0) % 41.9 MCV (80-95) fL 89 MCH (27.0-33.0) pg 31.3 MCHC (32.0-36.0) % 35.1 RDW (11.7-14.6) % 12.1 Plt Count (130-400) 10^3/uL 293 MPV (8.0-11.0) fL 11.5 H Immature Gran % % 0.3 Neutrophils % % 87.9 Lymphocytes % % 7.0 Monocytes % % 4.3 Eosinophils % % 0.0 Basophils % % 0.5 Nucleated RBC % (0.0-0.3) % 0.0 Absolute Neutrophils (1.2-6.7) 10^3/uL 10.42 H Absolute Lymphocytes (1.2-3.4) 10^3/uL 0.83 L Absolute Monocytes (0.1-0.8) 10^3/uL 0.51 Absolute Eosinophils (0.0-0.7) 10^3/uL 0.00 Absolute Basophils (0.0-0.2) 10^3/uL 0.06 Sodium (136-145) mmol/L 139 Potassium (3.5-5.1) mmol/L 3.3 L Chloride (98-107) mmol/L 104 Carbon Dioxide (21.0-32.0) mmol/L 15.9 L Anion Gap (3-11) mmol/L 19.1 H BUN (7-18) mg/dL 14 Creatinine (0.55-1.02) mg/dL 0.7 Est GFR (CKD-EPI 2020) (mL/min/1.73m2) 123.01 Glucose (74-106) mg/dL 95 Calcium (8.5-10.1) mg/dL 9.9 Magnesium (1.8-2.4) mg/dL 1.7 L Total Bilirubin (0.2-1.0) mg/dL 0.97 AST (15-37) U/L 14 L ALT (14-59) U/L 23 Alkaline Phosphatase (46-116) U/L 57 Total Protein (6.4-8.2) g/dL 8.4 H Albumin (3.4-5.0) g/dL 4.9 Medical Decision Making Quality:SDOH Health Related Social Needs: No Data to Display PFSH All Active Problems (Updated 10/27/23 @ 18:05 by Ines Victor) Gastroenteritis (Acute) Social History Smoking/Tobacco Use Status: Never Smoking risk assessment performed?: Yes Alcohol Intake: never Drug use: Daily Substance use type: marijuana Do you feel safe at home: Yes Do you feel safe in your relationship?: Yes
[2023-10-27 18:04] LABS: COVID-19 PCR Negative (Negative); Influenza A PCR Negative (Negative); Influenza B PCR Negative (Negative); RSV PCR Negative (Negative)
[2023-10-27 18:06] LABS: Source Nasopharynx
[2023-10-27 18:35] VITALS: BP 105/62; PULSE 107; RESP 15; TEMP 36.6; O2SAT 96
== END 2023-10-27 18:38 | disposition home or self-care (01) ==
PROVIDERS: Emergency Provider Nurse Practitioner Family; PCP Family Medicine
DX: K52.9 Noninfective gastroenteritis and colitis, unspecified (principal)
CPT/HCPCS: 80053; 81025; 87637; 96374; 99284; 83735; 85025; 99283; J2405

== ENCOUNTER 2024-07-17 15:12 | Outpatient (REF) | payer MEDICAID, SELFPAY ==
[2024-07-17 16:50] LABS: Hemoglobin A1C 4.6 % (<5.7)
[2024-07-17 16:54] LABS: ALT 23 U/L (14-59); AST 20 U/L (15-37); Albumin 4.4 g/dL (3.4-5.0); Alkaline Phosphatase 56 U/L (46-116); Anion Gap 6.2 mmol/L (3-11); BUN 15 mg/dL (7-18); Bilirubin, Total 0.7 mg/dL (0.2-1.0); CO2 27.8 mmol/L (21.0-32.0); CREATININE 0.7 mg/dL (0.55-1.02); Calcium 9.1 mg/dL (8.5-10.1); Chloride 105 mmol/L (98-107); Estimated GFR 122.25 (mL/min/1.73m2); Glucose 100 mg/dL (74-106); Sodium 139 mmol/L (136-145); Total Protein 7.5 g/dL (6.4-8.2); Vitamin D 25 Total 13 ng/mL (30-100)
== END 2024-07-17 15:13 | disposition home or self-care (01) ==
LOC: NCHCN 15:12
PROVIDERS: PCP Family Medicine; Visit Provider Family Medicine
DX: E55.9 Vitamin D deficiency, unspecified (principal); Z13.1 Encounter for screening for diabetes mellitus; E66.3 Overweight
CPT/HCPCS: 80053; 82306; 83036; 84443

== ENCOUNTER 2024-09-04 10:33 | Outpatient (REF) | payer MEDICAID, SELFPAY ==
--- NOTE | 2024-09-04 10:30 | PAPFT_PTH ---
PATIENT: Janeen Mcneill LOC: [facility] U#:[id number] AGE/SX: 24/F ROOM: RE09/04/[address]: Lady Gaines : 2000 BED: DIS: 09/04/2024 SPEC #: [id number] RECD: 09/04/24 16:53 STATUS: STEFANI REQ #: [id number] JOSE ENRIQUE: 09/04/24 10:[address]: Lady Gaines DEPT: [facility], [facility] Cytology RECD BY: Kailyn Vu ENTERED: 09/04/24 16:53 SP TYPE: PAPFT OTHR DR: Arlen Gee, RN Tissues: 1 - CX/ENDOCX FOR PAP SMEARS Procedures: PAP THIN PREP/[facility] Screening Comments: [id number] (CHLAMYDIA/GC)
[2024-09-05 13:05] LABS: Chlamydia Result Negative (Negative); GC Result Negative (Negative)
== END 2024-09-04 10:34 | disposition home or self-care (01) ==
LOC: NCHCN 10:33
PROVIDERS: PCP Family Medicine; Visit Provider Family Medicine
DX: Z12.4 Encounter for screening for malignant neoplasm of cervix (principal); Z00.00 Encounter for general adult medical examination without abnormal findings
CPT/HCPCS: 87491; 87591; 88142